=== PATIENT | female | born 1945 | race Caucasian/White ===

== ENCOUNTER 2025-01-20 03:29 | Emergency (ER) | payer MEDICARE ==
[2025-01-20] MEDS ORDERED: Benzonatate 100 MG CAP ONE (04:20)
[2025-01-20] MEDS ORDERED: predniSONE 20 MG TAB ONE (05:13)
== END 2025-01-20 05:22 | disposition home or self-care (01) ==
LOC: BURERS 03:29
DX: J22 Unspecified acute lower respiratory infection (principal); I10 Essential (primary) hypertension; E11.9 Type 2 diabetes mellitus without complications; K21.9 Gastro-esophageal reflux disease without esophagitis; E78.5 Hyperlipidemia, unspecified; Z79.899 Other long term (current) drug therapy; Z79.84 Long term (current) use of oral hypoglycemic drugs
CPT/HCPCS: 71046; 87428; J7512